=== PATIENT | male | born 1950 | race Caucasian/White ===

== ENCOUNTER 2016-09-07 08:44 | Outpatient (CLI) | payer MEDICARE, OTHER | END 2016-09-07 08:45 | disposition home or self-care (01) | DX: I10 Essential (primary) hypertension (principal); E11.9 Type 2 diabetes mellitus without complications; R55 Syncope and collapse; M51.36 Other intervertebral disc degeneration, lumbar region ==

== ENCOUNTER 2016-11-20 08:17 | Outpatient (CLI) | payer MEDICARE, OTHER | END 2016-11-20 08:18 | disposition home or self-care (01) | LOC: DI 08:17 | PROVIDERS: ATTEND Family Medicine | DX: I49.3 Ventricular premature depolarization (principal); I51.7 Cardiomegaly | CPT/HCPCS: 93306 ==

== ENCOUNTER 2017-03-01 08:18 | Outpatient (CLI) | payer MEDICARE, OTHER ==
[2017-03-01 14:11] LABS: ALBUMIN/GLOBULIN RATIO 1.2 (1.0-2.2); BILIRUBIN,TOTAL 0.4 mg/dL (0.2-1.0); CALCIUM 9.5 mg/dL (8.5-10.3); CREATININE 0.8 mg/dL (0.6-1.2); POTASSIUM 4.2 mmol/L (3.5-5.0); TOTAL PROTEIN 6.9 g/dL (6.7-8.2)
[2017-03-01 14:51] LABS: HEMOGLOBIN A1C 1.06 g/dL
== END 2017-03-01 08:19 | disposition home or self-care (01) ==
LOC: LAB.WCP 08:18
PROVIDERS: ATTEND Family Medicine
DX: E11.9 Type 2 diabetes mellitus without complications (principal); I10 Essential (primary) hypertension; R53.83 Other fatigue; G47.33 Obstructive sleep apnea (adult) (pediatric); E78.5 Hyperlipidemia, unspecified; I49.3 Ventricular premature depolarization; F10.20 Alcohol dependence, uncomplicated; R79.89 Other specified abnormal findings of blood chemistry
CPT/HCPCS: 36415; 80053; 83036; 83735; 84443

== ENCOUNTER 2017-04-12 11:15 | Outpatient (CLI) | payer MEDICARE, OTHER | END 2017-04-12 11:16 | disposition home or self-care (01) | LOC: SC 11:15 | PROVIDERS: ATTEND Internal Medicine Pulmonary Disease | DX: G47.33 Obstructive sleep apnea (adult) (pediatric) (principal) | CPT/HCPCS: 99203; G0463; 99212 ==

== ENCOUNTER 2017-06-08 08:21 | Outpatient (CLI) | payer MEDICARE, OTHER ==
[2017-06-08 13:04] LABS: ALBUMIN 4.1 g/dL (3.2-5.5); ALBUMIN/GLOBULIN RATIO 1.2 (1.0-2.2); BILIRUBIN,TOTAL 0.8 mg/dL (0.2-1.0); CALCIUM 9.7 mg/dL (8.5-10.3); CREATININE 0.9 mg/dL (0.6-1.2); TOTAL PROTEIN 7.5 g/dL (6.7-8.2)
[2017-06-08 13:52] LABS: HB2 TOTAL 16.6 g/dL; HEMOGLOBIN A1C 1.05 g/dL; HEMOGLOBIN A1C % 7.9 % (4.6-6.2)
== END 2017-06-08 08:22 | disposition home or self-care (01) ==
LOC: LAB.WCP 08:21
PROVIDERS: ATTEND Family Medicine
DX: I25.10 Atherosclerotic heart disease of native coronary artery without angina pectoris (principal); E11.9 Type 2 diabetes mellitus without complications; G47.33 Obstructive sleep apnea (adult) (pediatric); I27.20 Pulmonary hypertension, unspecified; F10.20 Alcohol dependence, uncomplicated; I10 Essential (primary) hypertension
CPT/HCPCS: 36415; 80053; 83036

== ENCOUNTER 2017-06-14 19:19 | Outpatient (CLI) | payer MEDICARE, OTHER | END 2017-06-14 19:20 | disposition home or self-care (01) | LOC: SC 19:19 | PROVIDERS: ATTEND Internal Medicine Pulmonary Disease | DX: G47.33 Obstructive sleep apnea (adult) (pediatric) (principal) | CPT/HCPCS: 95810 ==

== ENCOUNTER 2017-06-18 12:40 | Outpatient (CLI) | payer MEDICARE, OTHER | END 2017-06-18 12:41 | disposition EMS.NT | LOC: EMS 12:40 | PROVIDERS: ATTEND Surgery | DX: R06.00 Dyspnea, unspecified (principal); R11.2 Nausea with vomiting, unspecified ==

== ENCOUNTER 2017-07-27 14:23 | Outpatient (CLI) | payer MEDICARE, OTHER | END 2017-07-27 14:24 | disposition home or self-care (01) | LOC: SC 14:23 | PROVIDERS: ATTEND Nurse Practitioner Family | DX: G47.33 Obstructive sleep apnea (adult) (pediatric) (principal); I49.9 Cardiac arrhythmia, unspecified | CPT/HCPCS: 99214; G0463; 99212 ==

== ENCOUNTER 2017-08-04 08:00 | Outpatient (CLI) | payer MEDICARE, OTHER ==
[2017-08-04 12:57] LABS: HEMOGLOBIN A1C 1.03 g/dL
[2017-08-04 13:08] LABS: ALBUMIN/GLOBULIN RATIO 1.2 (1.0-2.2); BILIRUBIN,TOTAL 0.5 mg/dL (0.2-1.0); CALCIUM 9.3 mg/dL (8.5-10.3); CREATININE 0.8 mg/dL (0.6-1.2); TOTAL PROTEIN 7.4 g/dL (6.7-8.2)
== END 2017-08-04 08:01 | disposition home or self-care (01) ==
LOC: LAB.WCP 08:00
PROVIDERS: ATTEND Family Medicine
DX: E11.9 Type 2 diabetes mellitus without complications (principal)
CPT/HCPCS: 36415; 80053; 83036

== ENCOUNTER 2017-11-02 08:00 | Outpatient (CLI) | payer MEDICARE, OTHER ==
[2017-11-02 13:32] LABS: ALBUMIN 3.8 g/dL (3.2-5.5); ALBUMIN/GLOBULIN RATIO 1.1 (1.0-2.2); BILIRUBIN,TOTAL 0.6 mg/dL (0.2-1.0); CALCIUM 9.5 mg/dL (8.5-10.3); CREATININE 0.9 mg/dL (0.6-1.2); TOTAL PROTEIN 7.2 g/dL (6.7-8.2)
[2017-11-02 13:41] LABS: HEMOGLOBIN A1C 0.78 g/dL; HEMOGLOBIN A1C % 6.6 % (4.6-6.2)
== END 2017-11-02 08:01 | disposition home or self-care (01) ==
LOC: LAB.WCP 08:00
PROVIDERS: ATTEND Family Medicine
DX: E78.5 Hyperlipidemia, unspecified (principal); I25.10 Atherosclerotic heart disease of native coronary artery without angina pectoris; F10.20 Alcohol dependence, uncomplicated; E11.9 Type 2 diabetes mellitus without complications
CPT/HCPCS: 36415; 80053; 82043; 83036

== ENCOUNTER 2017-12-07 15:05 | Outpatient (CLI) | payer MEDICARE, OTHER | END 2017-12-07 15:06 | disposition home or self-care (01) | LOC: SC 15:05 | PROVIDERS: ATTEND Internal Medicine Pulmonary Disease | DX: G47.33 Obstructive sleep apnea (adult) (pediatric) (principal) | CPT/HCPCS: 99213; G0463; 99212 ==

== ENCOUNTER 2018-03-24 08:32 | Outpatient (CLI) | payer MEDICARE, OTHER ==
[2018-03-24 12:42] LABS: HB2 TOTAL 15.6 g/dL; HEMOGLOBIN A1C 0.96 g/dL; HEMOGLOBIN A1C % 7.8 % (4.6-6.2)
[2018-03-24 12:47] LABS: ALBUMIN 3.9 g/dL (3.2-5.5); ALBUMIN/GLOBULIN RATIO 1.1 (1.0-2.2); ALKALINE PHOSPHATASE 43 IU/L (42-121); ALT ALANINE AMINOTRANSFERASE 40 IU/L (10-60); AST ASPARTATE AMINOTRANSFERASE 42 IU/L (10-42); BILIRUBIN,TOTAL 0.7 mg/dL (0.2-1.0); BUN - BLOOD UREA NITROGEN 16 mg/dL (6-20); CALCIUM 9.3 mg/dL (8.5-10.3); CARBON DIOXIDE - CO2 27 mmol/L (21-32); CHLORIDE 103 mmol/L (101-111); CHOL/HDL RATIO 3.6 (<5.0); CHOLESTEROL 147 mg/dL; CREATININE 0.8 mg/dL (0.6-1.2); GFR - MDRD 96 (>89); GLUCOSE 206 mg/dL (70-100); HDL CHOLESTEROL 41 mg/dL; LDL CHOLESTEROL,CALCULATED 61 mg/dL; LDL/HDL RATIO 1.5 (<3.6); SODIUM 139 mmol/L (135-145); TOTAL PROTEIN 7.3 g/dL (6.7-8.2); VLDL CHOLESTEROL 45 mg/dL
== END 2018-03-24 08:33 ==
LOC: LAB.WCP 08:32
PROVIDERS: ATTEND Family Medicine
DX: I25.10 Atherosclerotic heart disease of native coronary artery without angina pectoris (principal); E11.9 Type 2 diabetes mellitus without complications; F10.20 Alcohol dependence, uncomplicated
CPT/HCPCS: 36415; 80053; 80061; 82043; 83036; 83721

== ENCOUNTER 2018-07-01 09:15 | Outpatient (CLI) | payer MEDICARE, OTHER ==
[2018-07-01 13:29] LABS: BASOPHILS # (AUTO) 0.1 10^3/uL (0.0-0.1); BASOPHILS % (AUTO) 0.9 %; EOSINOPHILS # (AUTO) 0.2 10^3/uL (0.0-0.7); EOSINOPHILS % (AUTO) 3.1 %; HGB - HEMOGLOBIN 14.7 g/dL (14.0-18.0); LYMPHOCYTES # (AUTO) 2.1 10^3/uL (1.5-3.5); LYMPHOCYTES % (AUTO) 29.7 %; MEAN CORPUSCULAR HEMOGLOBIN 29.2 pg (27.0-31.0); MEAN CORPUSCULAR HGB CONC 33.9 g/dL (32.0-36.0); MEAN CORPUSCULAR VOLUME 86.1 fL (80.0-94.0); MEAN PLATELET VOLUME 9.6 fL (7.4-11.4); MONOCYTES # (AUTO) 0.6 10^3/uL (0.0-1.0); MONOCYTES % (AUTO) 8.3 %; NEUTROPHILS # (AUTO) 4.1 10^3/uL (1.5-6.6); PLT - PLATELET COUNT 181 10^3/uL (130-450); RED BLOOD COUNT 5.03 10^6/uL (4.70-6.10)
[2018-07-01 14:03] LABS: ALBUMIN/GLOBULIN RATIO 1.1 (1.0-2.2); ALKALINE PHOSPHATASE 48 IU/L (42-121); ALT ALANINE AMINOTRANSFERASE 63 IU/L (10-60); AST ASPARTATE AMINOTRANSFERASE 39 IU/L (10-42); BILIRUBIN,TOTAL 0.6 mg/dL (0.2-1.0); BUN - BLOOD UREA NITROGEN 13 mg/dL (6-20); CALCIUM 9.7 mg/dL (8.5-10.3); CARBON DIOXIDE - CO2 26 mmol/L (21-32); CHLORIDE 101 mmol/L (101-111); CHOL/HDL RATIO 2.9 (<5.0); CHOLESTEROL 113 mg/dL; CREATININE 0.9 mg/dL (0.6-1.2); GFR - MDRD 84 (>89); GLUCOSE 199 mg/dL (70-100); HDL CHOLESTEROL 39 mg/dL; LDL CHOLESTEROL,CALCULATED 49 mg/dL; LDL/HDL RATIO 1.3 (<3.6); SODIUM 137 mmol/L (135-145); TOTAL PROTEIN 7.6 g/dL (6.7-8.2); VLDL CHOLESTEROL 25 mg/dL
[2018-07-01 14:35] LABS: HB2 TOTAL 15.8 g/dL; HEMOGLOBIN A1C 1.07 g/dL; HEMOGLOBIN A1C % 8.3 % (4.6-6.2)
[2018-07-01 14:59] LABS: CREATININE,URINE 120.1 mg/dL; MICROALBUM/CREATININE RATIO,UR 6.7 ug/mg (<30.0); MICROALBUMIN,URINE 0.8 mg/dL (0-300.0)
== END 2018-07-01 09:16 | disposition home or self-care (01) ==
LOC: LAB.WCP 09:15
PROVIDERS: ATTEND Family Medicine
DX: E78.5 Hyperlipidemia, unspecified (principal); E11.9 Type 2 diabetes mellitus without complications; I25.10 Atherosclerotic heart disease of native coronary artery without angina pectoris
CPT/HCPCS: 36415; 80053; 80061; 82043; 82570; 83036; 83721; 84443; 85025

== ENCOUNTER 2018-10-21 08:00 | Outpatient (CLI) | payer MEDICARE, OTHER ==
[2018-10-21 12:39] LABS: BASOPHILS % (AUTO) 0.4 %; EOSINOPHILS # (AUTO) 0.1 10^3/uL (0.0-0.7); EOSINOPHILS % (AUTO) 2.4 %; LYMPHOCYTES # (AUTO) 1.6 10^3/uL (1.5-3.5); LYMPHOCYTES % (AUTO) 29.5 %; MEAN CORPUSCULAR HEMOGLOBIN 28.1 pg (27.0-31.0); MEAN CORPUSCULAR HGB CONC 33.4 g/dL (32.0-36.0); MEAN CORPUSCULAR VOLUME 84.3 fL (80.0-94.0); MEAN PLATELET VOLUME 9.8 fL (7.4-11.4); MONOCYTES # (AUTO) 0.4 10^3/uL (0.0-1.0); MONOCYTES % (AUTO) 7.5 %; NEUTROPHILS # (AUTO) 3.3 10^3/uL (1.5-6.6); NEUTROPHILS % (AUTO) 60.2 %; PLT - PLATELET COUNT 154 10^3/uL (130-450); RED BLOOD COUNT 5.32 10^6/uL (4.70-6.10); RED CELL DISTRIBUTION WIDTH 13.1 % (12.0-15.0); WHITE BLOOD COUNT 5.4 x10^3/uL (4.8-10.8)
[2018-10-21 12:43] LABS: ALBUMIN/GLOBULIN RATIO 1.2 (1.0-2.2); BILIRUBIN,TOTAL 0.6 mg/dL (0.2-1.0); CALCIUM 9.5 mg/dL (8.5-10.3); CREATININE 0.9 mg/dL (0.6-1.2); TOTAL PROTEIN 7.4 g/dL (6.7-8.2)
[2018-10-21 12:49] LABS: HB2 TOTAL 15.8 g/dL; HEMOGLOBIN A1C 0.96 g/dL; HEMOGLOBIN A1C % 7.7 % (4.6-6.2)
== END 2018-10-21 23:59 | disposition home or self-care (01) ==
LOC: LAB.WCP 08:00
PROVIDERS: ATTEND Family Medicine
DX: I25.10 Atherosclerotic heart disease of native coronary artery without angina pectoris (principal); E11.9 Type 2 diabetes mellitus without complications; Z12.5 Encounter for screening for malignant neoplasm of prostate; G47.33 Obstructive sleep apnea (adult) (pediatric); F10.20 Alcohol dependence, uncomplicated; I10 Essential (primary) hypertension
CPT/HCPCS: 36415; 82043; 83036; G0103; 80053; 84153; 84443; 85025

== ENCOUNTER 2019-01-24 08:33 | Outpatient (CLI) | payer MEDICARE, OTHER ==
--- NOTE | 2019-01-24 09:16 | XRAY Report ---
Reason: LEFT SIDE RIB PAIN Procedure Date: 01/24/2019 Accession Number: [id number] / [id number] Procedure: WCP - Chest 2 View X-Ray CPT Code: 63007 FULL RESULT: EXAM: CHEST RADIOGRAPHY EXAM DATE: 01/24/2019 08:33 AM. CLINICAL HISTORY: LEFT SIDE RIB PAIN. COMPARISON: None. TECHNIQUE: 2 views. FINDINGS: Lungs/Pleura: No focal opacities evident. No pleural effusion. No pneumothorax. Normal volumes. Mediastinum: Heart and mediastinal contours are unremarkable. Other: None. IMPRESSION: Normal 2-view chest radiography. [facility]
== END 2019-01-24 23:59 | disposition home or self-care (01) ==
LOC: DI.WCP 08:33 → EDSTATUS 13:26 → DI.WCP 23:59
PROVIDERS: ATTEND Physician Assistant Medical
DX: R07.81 Pleurodynia (principal)
CPT/HCPCS: 71046

== ENCOUNTER 2019-02-13 08:00 | Outpatient (CLI) | payer MEDICARE, OTHER ==
[2019-02-13 13:52] LABS: ALBUMIN 3.8 g/dL (3.2-5.5); ALBUMIN/GLOBULIN RATIO 1.2 (1.0-2.2); ALKALINE PHOSPHATASE 45 IU/L (42-121); ALT ALANINE AMINOTRANSFERASE 20 IU/L (10-60); AMYLASE 91 U/L (28-100); AST ASPARTATE AMINOTRANSFERASE 20 IU/L (10-42); BILIRUBIN,TOTAL 0.5 mg/dL (0.2-1.0); BUN - BLOOD UREA NITROGEN 22 mg/dL (6-20); CALCIUM 9.1 mg/dL (8.5-10.3); CARBON DIOXIDE - CO2 27 mmol/L (21-32); CHLORIDE 103 mmol/L (101-111); CHOLESTEROL 96 mg/dL; CREATININE 0.7 mg/dL (0.6-1.2); GFR - MDRD 112 (>89); GLUCOSE 140 mg/dL (70-100); HDL CHOLESTEROL 32 mg/dL; LDL CHOLESTEROL,CALCULATED 47 mg/dL; LDL/HDL RATIO 1.5 (<3.6); LIPASE 44 U/L (22-51); SODIUM 138 mmol/L (135-145); VLDL CHOLESTEROL 17 mg/dL
[2019-02-13 13:58] LABS: HB2 TOTAL 15.4 g/dL; HEMOGLOBIN A1C 0.71 g/dL; HEMOGLOBIN A1C % 6.4 % (4.6-6.2)
== END 2019-02-13 23:59 | disposition home or self-care (01) ==
LOC: LAB.WCP 08:00
PROVIDERS: ATTEND Internal Medicine Endocrinology, Diabetes & Metabolism
DX: E11.65 Type 2 diabetes mellitus with hyperglycemia (principal); I10 Essential (primary) hypertension; E78.00 Pure hypercholesterolemia, unspecified; R94.5 Abnormal results of liver function studies
CPT/HCPCS: 36415; 80053; 80061; 81599; 82150; 83036; 83525; 83690; 83721; 84681

== ENCOUNTER 2019-06-02 08:00 | Outpatient (CLI) | payer MEDICARE, OTHER ==
[2019-06-02 13:49] LABS: ALBUMIN 3.8 g/dL (3.2-5.5); ALBUMIN/GLOBULIN RATIO 1.2 (1.0-2.2); BILIRUBIN,TOTAL 0.7 mg/dL (0.2-1.0); CALCIUM 9.1 mg/dL (8.5-10.3); CREATININE 0.8 mg/dL (0.6-1.2); TOTAL PROTEIN 6.9 g/dL (6.7-8.2)
[2019-06-02 14:19] LABS: CREATININE,URINE 111.5 mg/dL; MICROALBUM/CREATININE RATIO,UR 19.7 ug/mg (<30.0); MICROALBUMIN,URINE 2.2 mg/dL (0-300.0)
[2019-06-02 14:21] LABS: HB2 TOTAL 15.4 g/dL; HEMOGLOBIN A1C 0.72 g/dL; HEMOGLOBIN A1C % 6.4 % (4.6-6.2)
== END 2019-06-02 23:59 | disposition home or self-care (01) ==
LOC: LAB.WCP 08:00
PROVIDERS: ATTEND Internal Medicine
DX: E11.65 Type 2 diabetes mellitus with hyperglycemia (principal)
CPT/HCPCS: 36415; 80053; 82043; 82570; 83036; 84443

== ENCOUNTER 2019-10-18 08:00 | Outpatient (CLI) | payer MEDICARE, OTHER ==
[2019-10-17 14:11] LABS: BASOPHILS # (AUTO) 0.1 10^3/uL (0.0-0.1); BASOPHILS % (AUTO) 0.9 %; EOSINOPHILS # (AUTO) 0.2 10^3/uL (0.0-0.7); EOSINOPHILS % (AUTO) 2.7 %; LYMPHOCYTES # (AUTO) 1.8 10^3/uL (1.5-3.5); LYMPHOCYTES % (AUTO) 33.1 %; MEAN CORPUSCULAR HEMOGLOBIN 29.4 pg (27.0-31.0); MEAN CORPUSCULAR HGB CONC 33.4 g/dL (32.0-36.0); MEAN CORPUSCULAR VOLUME 87.9 fL (80.0-94.0); MEAN PLATELET VOLUME 11.9 fL (7.4-11.4); MONOCYTES # (AUTO) 0.5 10^3/uL (0.0-1.0); MONOCYTES % (AUTO) 9.3 %; NEUTROPHILS # (AUTO) 2.9 10^3/uL (1.5-6.6); NEUTROPHILS % (AUTO) 53.6 %; PLT - PLATELET COUNT 175 10^3/uL (130-450); RED BLOOD COUNT 5.45 10^6/uL (4.70-6.10); RED CELL DISTRIBUTION WIDTH 13.2 % (12.0-15.0); WHITE BLOOD COUNT 5.5 x10^3/uL (4.8-10.8)
[2019-10-17 14:19] LABS: ALBUMIN/GLOBULIN RATIO 1.1 (1.0-2.2); BILIRUBIN,TOTAL 0.8 mg/dL (0.2-1.0); CALCIUM 9.8 mg/dL (8.5-10.3); CREATININE 0.9 mg/dL (0.6-1.2); TOTAL PROTEIN 7.5 g/dL (6.7-8.2)
[2019-10-17 14:24] LABS: HEMOGLOBIN A1C 0.76 g/dL; HEMOGLOBIN A1C % 6.2 % (4.6-6.2)
[2019-10-17 14:38] LABS: CREATININE,URINE 121.4 mg/dL; MICROALBUM/CREATININE RATIO,UR 2.5 ug/mg (<30.0); MICROALBUMIN,URINE 0.3 mg/dL (0-300.0)
== END 2019-10-18 23:59 | disposition home or self-care (01) ==
LOC: LAB.WCP 08:00
PROVIDERS: ATTEND Family Medicine
DX: E78.5 Hyperlipidemia, unspecified (principal); E11.9 Type 2 diabetes mellitus without complications; Z12.5 Encounter for screening for malignant neoplasm of prostate; I10 Essential (primary) hypertension; I25.10 Atherosclerotic heart disease of native coronary artery without angina pectoris
CPT/HCPCS: 36415; 80053; 82043; 82570; 83036; 84443; 85025; G0103; 84153

== ENCOUNTER 2020-04-27 09:11 | Outpatient (CLI) | payer MEDICARE, OTHER ==
[2020-04-27 09:35] LABS: BASOPHILS % (AUTO) 0.8 %; EOSINOPHILS # (AUTO) 0.1 10^3/uL (0.0-0.7); EOSINOPHILS % (AUTO) 2.7 %; HGB - HEMOGLOBIN 15.6 g/dL (14.0-18.0); LYMPHOCYTES # (AUTO) 1.8 10^3/uL (1.5-3.5); MEAN CORPUSCULAR HEMOGLOBIN 28.8 pg (27.0-31.0); MEAN CORPUSCULAR HGB CONC 33.3 g/dL (32.0-36.0); MEAN CORPUSCULAR VOLUME 86.5 fL (80.0-94.0); MEAN PLATELET VOLUME 10.8 fL (7.4-11.4); MONOCYTES # (AUTO) 0.4 10^3/uL (0.0-1.0); MONOCYTES % (AUTO) 8.6 %; NEUTROPHILS # (AUTO) 2.7 10^3/uL (1.5-6.6); NEUTROPHILS % (AUTO) 52.7 %; PLT - PLATELET COUNT 163 10^3/uL (130-450); RED BLOOD COUNT 5.42 10^6/uL (4.70-6.10); RED CELL DISTRIBUTION WIDTH 12.7 % (12.0-15.0); WHITE BLOOD COUNT 5.1 x10^3/uL (4.8-10.8)
[2020-04-27 09:50] LABS: ALBUMIN 4.2 g/dL (3.2-5.5); ALBUMIN/GLOBULIN RATIO 1.4 (1.0-2.2); ALKALINE PHOSPHATASE 37 IU/L (42-121); ALT ALANINE AMINOTRANSFERASE 25 IU/L (10-60); AST ASPARTATE AMINOTRANSFERASE 23 IU/L (10-42); BILIRUBIN,TOTAL 0.8 mg/dL (0.2-1.0); BUN - BLOOD UREA NITROGEN 17 mg/dL (6-20); CALCIUM 9.7 mg/dL (8.5-10.3); CARBON DIOXIDE - CO2 29 mmol/L (21-32); CHLORIDE 100 mmol/L (101-111); CHOL/HDL RATIO 3.4 (<5.0); CHOLESTEROL 138 mg/dL; GLUCOSE 141 mg/dL (70-100); HDL CHOLESTEROL 41 mg/dL; LDL CHOLESTEROL,CALCULATED 65 mg/dL; LDL/HDL RATIO 1.6 (<3.6); SODIUM 140 mmol/L (135-145); TOTAL PROTEIN 7.3 g/dL (6.7-8.2); VLDL CHOLESTEROL 32 mg/dL
== END 2020-04-27 09:12 | disposition home or self-care (01) ==
LOC: LAB 09:11
PROVIDERS: ATTEND Family Medicine
DX: I10 Essential (primary) hypertension (principal); I25.10 Atherosclerotic heart disease of native coronary artery without angina pectoris; E11.9 Type 2 diabetes mellitus without complications; E78.5 Hyperlipidemia, unspecified
CPT/HCPCS: 36415; 80053; 80061; 83721; 84443; 85025

== ENCOUNTER 2020-05-07 08:00 | Outpatient (CLI) | payer MEDICARE, OTHER ==
[2020-05-07 18:59] LABS: HEMOGLOBIN A1c% 6.5 % (4.27-6.07)
== END 2020-05-07 23:59 | disposition home or self-care (01) ==
LOC: LAB.WCP 08:00
PROVIDERS: ATTEND Physician Assistant
DX: E11.9 Type 2 diabetes mellitus without complications (principal)
CPT/HCPCS: 36415; 83036

== ENCOUNTER 2020-05-10 14:45 | Outpatient (CLI) | payer MEDICARE, OTHER | END 2020-05-10 14:46 | disposition home or self-care (01) | LOC: COV 14:45 | PROVIDERS: ATTEND Family Medicine | DX: Z20.828 Contact with and (suspected) exposure to other viral communicable diseases (principal) ==

== ENCOUNTER 2020-08-12 08:00 | Outpatient (CLI) | payer MEDICARE, OTHER ==
[2020-08-12 12:27] LABS: CALCIUM 9.2 mg/dL (8.5-10.3); CREATININE 0.8 mg/dL (0.6-1.2); POTASSIUM 4.3 mmol/L (3.5-5.0)
[2020-08-12 13:05] LABS: ESTIMATED AVERAGE GLUCOSE 143 mg/dL (70-100); HEMOGLOBIN A1c% 6.6 % (4.27-6.07)
== END 2020-08-12 23:59 | disposition home or self-care (01) ==
LOC: LAB.WCP 08:00
PROVIDERS: ATTEND Physician Assistant Medical
DX: E11.9 Type 2 diabetes mellitus without complications (principal)
CPT/HCPCS: 36415; 80048; 83036

== ENCOUNTER 2021-05-06 07:26 | Day surgery (SDC) | payer MEDICARE, OTHER ==
[2021-05-06] MEDS ORDERED: LACTATED RINGERS 1,000 ML IV ONE ×2 (07:53→09:16)
--- NOTE | 2021-05-06 08:05 | ANESTHESIA ---
Pre-Anesthesia VS, & Labs - Diagnosis screening exam - Procedure colonoscopy Vital Signs: Temp Pulse Resp BP Pulse Ox 36.2 C L 71 18 127/87 H 100 05/06/21 07:39 05/06/21 07:39 05/06/21 07:39 05/06/21 07:39 05/06/21 07:39 Height: 5 ft 10 in Weight (kg): 95 kg Body Mass Index: 30.0 BMI Classification: Obese - NPO >8 hours - Lab Results Current Lab Results: Laboratory Tests 05/06/21 07:51: POC Whole Bld Glucose 128 H Lab results reviewed: Yes Home Medications and Allergies Home Medications: Ambulatory Orders Aspirin [[place] Aspirin] 1 tab ORAL DAILY 05/06/21 Disulfiram 250 mg ORAL DAILY 05/06/21 Liraglutide [Victoza 2-Christopher] 1.8 mg SQ DAILY 05/06/21 Carvedilol [Coreg] 37.5 mg PO BID 01/07/15 EPINEPHrine [Epipen 2-Christopher] 0.3 mg IJ PRN PRN 01/07/15 Lisinopril 20 mg PO DAILY 01/07/15 Metformin HCl 1,000 mg PO BID 01/07/15 Tadalafil [Cialis] 20 mg PO PRN PRN 01/07/15 Atorvastatin Calcium 20 mg PO DAILY PM 04/05/17 Glipizide [Glipizide ER] 5 mg PO DAILY 04/05/17 Magnesium 1,000 mg PO DAILY 04/05/17 Naltrexone HCl 50 mg PO DAILY 04/05/17 Naproxen [Naprosyn] 500 mg PO BID PRN 04/05/17 Pantoprazole Sodium [Protonix] 40 mg PO QDBREAKFAST 04/05/17 Scopolamine [Transderm-Scop] 1 each TD PRN PRN 04/05/17 Aspirin [[place] Aspirin] 1 tab ORAL DAILY 05/06/21 Disulfiram 250 mg ORAL DAILY 05/06/21 Liraglutide [Victoza 2-Christopher] 1.8 mg SQ DAILY 05/06/21 Allergies/Adverse Reactions: Allergies Allergy/AdvReac Type Severity Reaction Status Date / Time Iodine and Iodide Containing Allergy Severe Respiratory Verified 01/07/15 10:52 Produc celecoxib [From Celebrex] Allergy Intermediate Nausea Verified 01/07/15 10:52 insect venom Allergy Intermediate Rash Verified 01/07/15 10:52 amoxicillin Allergy Unknown Verified 04/05/17 15:22 Anes History & Medical History - Anesthetic History Anesthesia Complications: reports: No previous complications - Medical History Cardiovascular: reports: Hypertension, High cholesterol Pulmonary: reports: Sleep apnea, CPAP use Gastrointestinal: reports: GERD Urinary: reports: None Neuro: reports: None Musculoskeletal: reports: Osteoarthritis, Chronic back pain Endocrine/Autoimmune: reports: Type 2 diabetes Blood Disorders: reports: None Skin: reports: None Smoking Status: Former smoker (none for 15 years) Psychosocial: reports: No issues indicated History of Cancer?: No - Surgical History General: reports: Cholecystectomy, Colonoscopy Urologic: reports: Bladder surgery Orthopedic: reports: Other Exam General: Alert, Oriented x3, Cooperative, No acute distress Dental: Dentures full Upper Mouth Openin Fingerbreadth Neck Mobility: Normal Mallampati classification: II Thyromental Distance: 4-6 cm Mental/Cognitive Status: Alert/Oriented X3, Normal for patient Plan Anesthesia Type: Total IV Consent for Procedure(s) Verified and Reviewed: Yes Code Status: Attempt Resuscitation ASA classification: 2-Mild systemic disease Is this case an emergency?: No
[2021-05-06] MEDS ORDERED: PROPOFOL 200 MG/20 ML VIAL IVP ONE (09:25)
[2021-05-06] MEDS ORDERED: PROPOFOL 500 MG/50 ML 500 MG/50 ML VIAL ONE (09:25)
[2021-05-06 10:17] VITALS: BP 111/67
--- NOTE | 2021-05-06 10:26 | ANESTHESIA POST OP EVALUATION ---
Anesthesia Post Eval - Post Anesthesia Eval Vitals: Last Vital Signs Temp 36 C L 05/06/21 09:50 Pulse 64 05/06/21 09:50 Resp 16 05/06/21 09:50 BP 111/67 05/06/21 09:50 Pulse Ox 98 05/06/21 09:50 CV Function Including HR & BP: Stable Pain Control: Satisfactory Nausea & Vomiting: Negative Mental Status: Baseline Respiratory Status: Airway Patent Hydration Status: Satisfactory Anesthesia Complications: None
== END 2021-05-06 07:27 | disposition home or self-care (01) ==
LOC: SDS 07:26
PROVIDERS: ATTEND Surgery
PROC: 0DBM8ZZ Excision of Descending Colon, Via Natural or Artificial Opening Endoscopic (ICD-10-PCS; 2021-05-06)
PROC: 0DBL8ZZ Excision of Transverse Colon, Via Natural or Artificial Opening Endoscopic (ICD-10-PCS; principal; 2021-05-06 08:30)
DX: Z12.11 Encounter for screening for malignant neoplasm of colon (principal); D12.4 Benign neoplasm of descending colon; D12.3 Benign neoplasm of transverse colon; K64.8 Other hemorrhoids; K64.4 Residual hemorrhoidal skin tags; K57.30 Diverticulosis of large intestine without perforation or abscess without bleeding; E66.9 Obesity, unspecified; Z68.30 Body mass index [BMI] 30.0-30.9, adult; G47.33 Obstructive sleep apnea (adult) (pediatric); I25.10 Atherosclerotic heart disease of native coronary artery without angina pectoris
CPT/HCPCS: 45380; 45384; J7120

== ENCOUNTER 2021-07-22 09:09 | Outpatient (CLI) | payer MEDICARE, OTHER ==
[2021-07-22 12:31] LABS: ALBUMIN 3.9 g/dL (3.2-5.5); ALBUMIN/GLOBULIN RATIO 1.3 (1.0-2.2); ALKALINE PHOSPHATASE 31 IU/L (42-121); ALT ALANINE AMINOTRANSFERASE 29 IU/L (10-60); AST ASPARTATE AMINOTRANSFERASE 25 IU/L (10-42); BILIRUBIN,TOTAL 0.7 mg/dL (0.2-1.0); BUN - BLOOD UREA NITROGEN 19 mg/dL (6-20); CALCIUM 9.4 mg/dL (8.5-10.3); CARBON DIOXIDE - CO2 29 mmol/L (21-32); CHLORIDE 101 mmol/L (101-111); CHOL/HDL RATIO 3.1 (<5.0); CHOLESTEROL 115 mg/dL; CREATININE 0.8 mg/dL (0.6-1.2); GFR - MDRD 95 (>89); GLUCOSE 130 mg/dL (70-100); HDL CHOLESTEROL 37 mg/dL; LDL CHOLESTEROL,CALCULATED 58 mg/dL; LDL/HDL RATIO 1.6 (<3.6); POTASSIUM 4.1 mmol/L (3.5-5.0); SODIUM 138 mmol/L (135-145); TOTAL PROTEIN 6.8 g/dL (6.7-8.2); TRIGLYCERIDES 100 mg/dL; VLDL CHOLESTEROL 20 mg/dL
[2021-07-22 12:34] LABS: CREATININE,URINE 82.7 mg/dL; MICROALBUMIN,URINE 0.5 mg/dL (0-300.0)
[2021-07-22 12:36] LABS: ESTIMATED AVERAGE GLUCOSE 148 mg/dL (70-100); HEMOGLOBIN A1c% 6.8 % (4.27-6.07)
== END 2021-07-22 09:10 | disposition home or self-care (01) ==
LOC: LAB.N 09:09
PROVIDERS: ATTEND Physician Assistant Medical
DX: E78.5 Hyperlipidemia, unspecified (principal); E11.9 Type 2 diabetes mellitus without complications
CPT/HCPCS: 36415; 80053; 80061; 82043; 82570; 83036; 83721

== ENCOUNTER 2022-09-16 10:49 | Outpatient (CLI) | payer MEDICARE, OTHER ==
--- NOTE | 2022-09-16 14:09 | XRAY Report ---
PROCEDURE: Lumbar Spine 2 View INDICATIONS: SCIATICA,LEFT TECHNIQUE: 2 views of the lumbar spine were acquired. COMPARISON: X-ray lumbar spine 09/21/2012 FINDINGS: Bones: 5 [id number] vertebrae are present. There is there is trace retrolisthesis of L1 on L2, L2 on L3, L5 on S1. Severe disc and foraminal narrowing noted L5-S1, mildly progressive. There are s cattered mild areas of disc space narrowing throughout the remainder of the lumbar spine. No vertebra l body compression fractures. No suspicious bony lesions. Soft tissues: Overlying bowel gas pattern is normal. No suspicious soft tissue calcifications. IMPRESSION: Degenerative changes most severe at L5-S1. Reviewed by: Edilia Kauffman MD on 09/16/2022 2:08 PM PDT Approved by: Edilia Kauffman MD on 09/16/2022 2:08 PM PDT Station ID: [id number]
== END 2022-09-16 10:50 | disposition home or self-care (01) ==
LOC: DI 10:49
PROVIDERS: ATTEND Family Medicine
DX: M54.32 Sciatica, left side (principal); M47.816 Spondylosis without myelopathy or radiculopathy, lumbar region; M47.817 Spondylosis without myelopathy or radiculopathy, lumbosacral region

== ENCOUNTER 2022-10-10 09:02 | Outpatient (CLI) | payer MEDICARE, OTHER ==
--- NOTE | 2022-10-12 10:32 | MRI Report ---
PROCEDURE: LUMBAR SPINE WO INDICATIONS: SCIATICA TECHNIQUE: Noncontrast sagittal T1 spin echo and T2 fast echo, sagittal STIR, axial T1 and T2 fast spin echo thr ough the lumbar spine. In cases with scoliosis, additional coronal T2 fast spin echo may be performe d. COMPARISON: Plain films 09/16/2022 and MRI 04/02/2006 FINDINGS: Image quality: Excellent. Alignment and Curvature: Trace anterolisthesis L4-5. Otherwise normal bony alignment. Bone Marrow: Marrow is of normal overall signal. No acute vertebral body compression fractures. Spinal Cord: Conus medullaris terminates at the T12 level. Visualized cord demonstrates normal sign al and size. Paraspinous Soft Tissues: No paravertebral masses. A few left renal cysts. Mildly ectatic common il iac arteries, the left is 1.7 cm maximal diameter. T12-L1: Normal in appearance. L1-L2: Normal in appearance. L2-L3: Mild circumferential broad-based disc bulge. Mild facet and ligamentum flavum hypertrophy. No foraminal or central canal stenosis. L3-L4: Mild circumferential disc bulge with small broad-based left foraminal protrusion. Minor face t arthropathy. No central canal or foraminal stenosis. L4-L5: Mild broad-based posterior disc bulge. Mild to moderate ligamentum flavum hypertrophy, left worse than right. Disc material narrows bilateral lateral recesses, left worse than right and there i s overall moderate central canal stenosis. Mild bilateral foraminal narrowing. L5-S1: Mild disc height loss. Small broad-based posterior disc bulge. Moderate left facet arthropat hy. A small ovoid synovial or nerve sheath cyst in the left posterior neural foramen contributes to m ild left foraminal narrowing. No right-sided foraminal or central canal narrowing. IMPRESSION: 1. Disc bulge and ligamentum flavum hypertrophy at L4-5 causes moderate central canal narrowing and b ilateral lateral recess narrowing, left more so than right. This has progressed since the prior study and may cause left L5 radiculopathy. 2. There is also moderate bilateral neural foraminal narrowing at L4-5 and L4 radiculopathy may be pr esent. Reviewed by: Arlene Mandujano MD on 10/12/2022 10:30 AM PDT Approved by: Arlene Mandujano MD on 10/12/2022 10:30 AM PDT Station ID: [id number]
== END 2022-10-10 09:03 | disposition home or self-care (01) ==
LOC: DI 09:02
PROVIDERS: ATTEND Family Medicine
DX: M51.36 Other intervertebral disc degeneration, lumbar region (principal); M48.061 Spinal stenosis, lumbar region without neurogenic claudication; M47.816 Spondylosis without myelopathy or radiculopathy, lumbar region; M51.37 Other intervertebral disc degeneration, lumbosacral region; M48.07 Spinal stenosis, lumbosacral region; M47.817 Spondylosis without myelopathy or radiculopathy, lumbosacral region

== ENCOUNTER 2023-02-01 09:07 | Outpatient (CLI) | payer MEDICARE, OTHER ==
--- NOTE | 2023-02-01 10:00 | SLEEP CARE CONSULTATION ---
Information from patient questionnaire entered by Davonte Castro. I have reviewed and concur with the information entered by Davonte Castro. This document represents the service I personally performed and the decisions made by me, Jeremiah Grissom MD, [facility]. History of Present Illness Service Date and Time: 02/01/2023 09 Reason for Visit: New patient Usual bedtime: 11PM Time it takes to fall asleep: 10MIN Snores at night: Yes Observed to quit breathing while asleep: No Sleeps alone due to snoring: No Reasons for waking at night: reports: Other (UNKNOWN) Toss, Turn, or Twitch while sleeping: No Recalls having dreams: Yes Usually gets out of bed at: 730AM Feels refreshed in the morning: Yes Morning headache: No Sleepy or fatigued during the day: No Ever fallen asleep while driving: No Takes day naps: No Dreams during day naps: No Prior sleep studies: Yes Additional HPI information: I had the pleasure of seeing Mr. Larios today regarding obstructive sleep apnea- hypopnea. As you know, he is a 72 year old gentleman who was diagnosed with the sleep-disordered breathing here in 2013. The AHI was 13.1. He was prescribed a CPAP device set at 4 10 cmH2O. He uses his ResMed AirSense 10 most of the time. The compliance data show usage in 70 out of the past 90 nights, averaging 4.9 hours a night. The > 4 hour compliance rate for the past 30 days is 51%. The residual AHI is 0.6 and average air leak is 10.9 L/minute. He wears a [id number] nasal cushion mask. He gets his supplies from [employer]. He finds the treatment beneficial. He lost 60 lbs since he was last seen in 2014. - Parasomnia Symptoms Ever been unable to move upon waking from sleep: No Walks in sleep: No Talks in sleep: No Ever acted out dreams in sleep: No Ever felt weak in the knees when startled or emotional: No Bothered by creepy, crawly, restless sensations in legs: No Problems with memory or concentration: No Subjective Initial [place] Sleepiness Scale score: 2 (02/01/23) Social History The patient's occupation is a RE. Patient is and lives in [place]. Have you smoked in the past 12 months: No Alcohol use: No Caffeine use: Yes Caffeine amount and frequency: 4-5 CUPS A DAY Allergies and Home Medications Known drug allergies: Yes ( LISTED) Drug allergies reviewed: Yes Home medication list reviewed: Yes Allergy and home medication list: Allergies Iodine and Iodide Containing Produc Allergy (Severe, Verified 01/29/23 11:41) Respiratory celecoxib [From Celebrex] Allergy (Intermediate, Verified 01/29/23 11:41) Nausea insect venom Allergy (Intermediate, Verified 01/29/23 11:41) Rash amoxicillin Allergy (Verified 01/29/23 11:41) Unknown Review of Systems Cardiovascular: reports: high blood pressure Respiratory: denies: shortness of breath, wheeze, sputum production, chronic cough, other Gastrointestinal: reports: heartburn Urinary: denies: incontinence, frequency, urgency, impotence, other Psychiatric: denies: Attention Deficit Hyperactivity, anxiety, depression, mood disorder, claustrophobia, other Ear/Nose/Throat: reports: dry mouth/throat Musculoskeletal: denies: joint pain, neck pain, back pain, joint swelling, muscle pain or cramping, mobility problems, other Immunologic: denies: sneezing, rash, itching, allergies to food or environment, other Physical Exam Vital signs obtained and entered by: DAVONTE Silva MA Blood Pressure: 120/68 (LEFT ARM) Cuff size: regular Heart Rate: 66 O2 Saturation: 99 Height: 5 ft 10 in Weight: 197 lb 3.2 oz Body Mass Index: 28.3 BMI Classification: Overweight Neck circumference: 16.75 Mood/affect: Normal HEENT: No craniofacial malformation Nostrils: patent to airflow Turbinates: normal Septum: midline Mouth and throat: narrow oropharynx Soft palate: long Hard palate: normal Uvula: normal Uvula visualization: 50% Mallampati Class II Tongue: normal in size Tonsils: small Chin and jaw: normal size and position Neck: normal w/o lymphadenopathy or thyromegaly Heart: regular rate and rhythm Lungs: clear bilaterally Extremities: no edema or clubbing Neurologic: intact Impression and Plan IMPRESSION: 1. Obstructive Sleep Apnea-Hypopnea Syndrome, mild, as previously diagnosed. The patient has [id number] at this time and is not eligible for a new machine yet even though his ResMed AirSense 10 is now way older than 5 years. He was instructed to increase his CPAP usage the next 2 months and I will prescribe him a new machine then. Plan: 1. Use the CPAP more to meet [facility] compliance requirements. 2. Return for follow up in two months. Continue with device pressure at (cmH2O): 6-9 Follow up with Sleep Care in: 1-2 months Visit Type: In Office Time Spent with Patient (minutes): 15 Provider Statement: I spent 100% of the Face to Face Visit with the patient with greater than 50% spent counseling the patient and coordination of care.
[2023-02-01 10:09] VITALS: BP 120/68; O2SAT 99
== END 2023-02-01 09:08 | disposition home or self-care (01) ==
LOC: SC 09:07
PROVIDERS: ATTEND Internal Medicine Pulmonary Disease
DX: G47.33 Obstructive sleep apnea (adult) (pediatric) (principal); E66.3 Overweight; Z68.28 Body mass index [BMI] 28.0-28.9, adult
CPT/HCPCS: 99202; G0463; 99212

== ENCOUNTER 2023-05-31 13:59 | Outpatient (CLI) | payer MEDICARE, OTHER ==
--- NOTE | 2023-05-31 16:40 | SLEEP CARE CONSULTATION ---
Information from patient questionnaire entered by Davonte Castro. I have reviewed and concur with the information entered by Davonte Castro. This document represents the service I personally performed and the decisions made by me, Jeremiah Grissom MD, [facility]. History of Present Illness Service Date and Time: 05/31/2023 1879 Reason for follow up: other (4 MONTH F/U) HPI additional information: Mr. Larios was diagnosed to have mild obstructive sleep apnea-hypopnea syndrome and returns today for follow up of CPAP therapy. The patient purchased the device from [employer] and was fitted with a nasal mask. He uses the device nightly and all through the night. The compliance report shows that he uses the device 54 nights out of the past 60 nights, averaging 7 hours a night. He complains of no particular problem with the device such as soreness on the face, dry nose, epistaxis, nasal congestion or headache. He thinks that the pressure of 4 - 10 cmH2O is comfortable. On the CPAP therapy he notices improvement in his sleep quality, and that he wakes up feeling fresher in the morning and more awake/alert during the day. His notices no snore at all. [place] Sleepiness Scale score is 2. The average residual AHI is 0.3; and average air leak is 20.8 L/minute. The 90th percentile pressure is 8.9 cmH2O. CPAP Compliance Data - Data Reviewed with Patient Average duration of nightly device use: 6HRS 46MIN Compliance rate %: 68 (01/25/23-05/25/23) Current pressure setting (cmH2O): 4-10 Average residual AHI: 0.3 Subjective Current [place] Sleepiness Scale score: 2 (05/31/23) Allergies and Home Medications Drug allergies reviewed: Yes Home medication list reviewed: Yes Allergy and home medication list: Allergies Iodine and Iodide Containing Produc Allergy (Severe, Verified 05/27/23 15:45) Respiratory celecoxib [From Celebrex] Allergy (Intermediate, Verified 05/27/23 15:45) Nausea insect venom Allergy (Intermediate, Verified 05/27/23 15:45) Rash amoxicillin Allergy (Verified 05/27/23 15:45) Unknown Review of Systems Review of systems same as previous: Yes (NO CHANGE) Physical Exam Vital signs obtained and entered by: DAVONTE Silva MA Blood Pressure: 120/78 (LEFT ARM) Cuff size: regular Heart Rate: 69 O2 Saturation: 99 Height: 5 ft 10 in Weight: 199 lb 3.2 oz Body Mass Index: 28.5 BMI Classification: Overweight Impression and Plan IMPRESSION: 1. Obstructive Sleep Apnea-Hypopnea Syndrome, mild (AHI was 7.4 in 2018), with the patient continuing to do well on nasal CPAP therapy. He has excellent compliance and significant clinical benefits. The current pressure appears effective and comfortable. Overall, he is very satisfied with treatment and plans to continue with it long-term. Because the CPAP is now older than the useful life of 5 years, I will order the patient a new one and make it an autoCPAP set between 4 and 8 cmH2O. PLAN: 1. Prescription made for an autoCPAP, heated humidifier, and related supplies through [employer]. 2. Try to lose weight 3. Return in one year for follow up or earlier if there is any problem with the treatment. Counseling Topics: Weight control Prescriptions: Auto CPAP Follow up with Sleep Care in: 1 year Visit Type: In Office Time Spent with Patient (minutes): 15 Provider Statement: I spent 100% of the Face to Face Visit with the patient with greater than 50% spent counseling the patient and coordination of care.
[2023-05-31 16:44] VITALS: BP 120/78; O2SAT 99
== END 2023-05-31 14:00 | disposition home or self-care (01) ==
LOC: SC 13:59
PROVIDERS: ATTEND Internal Medicine Pulmonary Disease
DX: G47.33 Obstructive sleep apnea (adult) (pediatric) (principal); E66.3 Overweight; Z68.28 Body mass index [BMI] 28.0-28.9, adult
CPT/HCPCS: 99212; G0463

== ENCOUNTER 2023-08-12 10:25 | Outpatient (CLI) | payer MEDICARE, OTHER ==
--- NOTE | 2023-08-12 15:47 | XRAY Report ---
PROCEDURE: Toe(s) 2+V LT INDICATIONS: LEFT SECOND TOE PAIN TECHNIQUE: 3 views of the left second toe(s) acquired. COMPARISON: None. FINDINGS: Bones: No fractures or dislocations. Degenerative changes are present at the second DIP joint. No luna spicious bony lesions. Soft tissues: No suspicious soft tissue densities. IMPRESSION: No acute bony abnormality. Degenerative change at the second DIP joint. Reviewed by: Mckenzie Wood MD on 08/12/2023 3:46 PM PDT Approved by: Mckenzie Wood MD on 08/12/2023 3:46 PM PDT Station ID: [id number]
== END 2023-08-12 10:26 | disposition home or self-care (01) ==
LOC: DI 10:25
PROVIDERS: ATTEND Physician Assistant Medical
DX: M19.072 Primary osteoarthritis, left ankle and foot (principal)
CPT/HCPCS: 73660

== ENCOUNTER 2023-11-29 11:05 | Outpatient (CLI) | payer MEDICARE, OTHER ==
--- NOTE | 2023-11-29 12:30 | SLEEP CARE CONSULTATION ---
Information from patient questionnaire entered by Davonte Castro. I have reviewed and concur with the information entered by Davonte Castro. This document represents the service I personally performed and the decisions made by me, Jeremiah Grissom MD, [facility]. History of Present Illness Service Date and Time: 11/29/2023 1105 Reason for follow up: first compliance Equipment type: CPAP (NEED CPAP) HPI additional information: Mr. Larios was diagnosed with mild obstructive sleep apnea-hypopnea syndrome and returns today for follow up of CPAP therapy. The patient recently acquired a new device from [employer] and was fitted with a nasal mask. He uses the device nightly and all through the night. The compliance report shows that he uses the device 36 nights out of the past 40 nights, averaging 6.4 hours a night. The > 4 hour compliance rate for the past 30 days is 83%. He complains of no particular problem with the device such as soreness on the face, dry nose, epistaxis, nasal congestion or headache. He thinks that the pressure of 4 - 8 cmH2O is comfortable. On the CPAP therapy he notices improvement in his sleep quality, and that he wakes up feeling fresher in the morning and more awake/alert during the day. His notices no snore at all. [place] Sleepiness Scale score is 2. The average residual AHI is 0.3; and average air leak is 20.8 L/minute. The 90th percentile pressure is 8.9 cmH2O. Subjective Current [place] Sleepiness Scale score: 2 (11/29/23) Allergies and Home Medications Drug allergies reviewed: Yes Home medication list reviewed: Yes Allergy and home medication list: Allergies Iodine and Iodide Containing Produc Allergy (Severe, Verified 11/23/23 08:01) Respiratory celecoxib [From Celebrex] Allergy (Intermediate, Verified 11/23/23 08:01) Nausea insect venom Allergy (Intermediate, Verified 11/23/23 08:01) Rash amoxicillin Allergy (Verified 11/23/23 08:01) Unknown Review of Systems Review of systems same as previous: Yes (NO CHANGE) Physical Exam Vital signs obtained and entered by: DAVONTE Silva MA Blood Pressure: 151/83 (RIGHT ARM) Cuff size: regular Heart Rate: 60 O2 Saturation: 96 Height: 5 ft 10 in Weight: 194 lb 9.6 oz Body Mass Index: 27.9 BMI Classification: Overweight Impression and Plan IMPRESSION: 1. Obstructive Sleep Apnea-Hypopnea Syndrome, mild (AHI was 7.4 in 2018), with the patient continuing to do well on nasal CPAP therapy. He has excellent compliance and significant clinical benefits. The current pressure appears effective and comfortable. Overall, he is very satisfied with the treatment and plans to continue with it long-term. Because of the high air leak, I will lower the pr a little to 4 6 cmH2O. PLAN: 1. AutoCPAP set to 4 6 cmH2O via the modem. Return in one year for follow up or earlier if there is any problem with the treatment. Adjust device pressure to (cmH2O): 4 - 6 Follow up with Sleep Care in: 1 year Visit Type: In Office Time Spent with Patient (minutes): 15 Provider Statement: I spent 100% of the Face to Face Visit with the patient with greater than 50% spent counseling the patient and coordination of care.
[2023-11-29 12:34] VITALS: BP 151/83; O2SAT 96
== END 2023-11-29 11:06 | disposition home or self-care (01) ==
LOC: SC 11:05
PROVIDERS: ATTEND Internal Medicine Pulmonary Disease
DX: G47.33 Obstructive sleep apnea (adult) (pediatric) (principal); E66.3 Overweight; Z68.27 Body mass index [BMI] 27.0-27.9, adult
CPT/HCPCS: 99212; G0463

== ENCOUNTER 2024-01-21 13:03 | Outpatient (CLI) | payer MEDICARE, OTHER ==
[2024-01-21 22:03] LABS: ESTIMATED AVERAGE GLUCOSE 137 mg/dL (70-100); HEMOGLOBIN A1c% 6.4 % (4.27-6.07)
== END 2024-01-21 13:04 | disposition home or self-care (01) ==
LOC: LAB.N 13:03
PROVIDERS: ATTEND Physician Assistant Medical
DX: E11.42 Type 2 diabetes mellitus with diabetic polyneuropathy (principal)
CPT/HCPCS: 36415; 83036